=== PATIENT | female | born 1980 | race African-American/Black ===

== ENCOUNTER 2016-04-11 18:40 | Emergency (ER) | payer OTHER ==
[~2016-04-11 18:40] MED LIST: JOLIVETTE PO; KEFLEX250 M2 PO; KETOPROFEN PO; METROGEL-VAGINA70 GM VG; ORUDIS75 M1 PO
== END 2016-04-11 18:43 | disposition home or self-care (01) ==
LOC: CFTX 18:40
DX: Z48.01 Encounter for change or removal of surgical wound dressing (principal)
CPT/HCPCS: 99281